=== PATIENT | female | born 1995 | race American Indian/Alaskan Native ===

== ENCOUNTER 2021-02-28 02:08 | Emergency (ER) | payer OTHER, BC ==
[2021-02-28] MEDS ORDERED: Fentanyl 100 MCG/2 ML VIAL ONE (03:06)
[2021-02-28] MEDS ORDERED: Boostrix 0.5 ML (Tdap) VIAL ONE (03:06)
[2021-02-28 04:44] LABS: BHCG - Serum Negative (NEGATIVE); Pregs Control Background? CLEAR/WHITE (CLR/WHITE); Pregs Control Bar Appear? YES (CONTROL BAR)
[2021-02-28] MEDS ORDERED: Acetaminophen 500 MG TAB ONE (05:37)
== END 2021-02-28 06:10 | disposition home or self-care (01) ==
LOC: ERS 02:08
DX: S02.92XA Unspecified fracture of facial bones, initial encounter for closed fracture (principal); V89.0XXA Person injured in unspecified motor-vehicle accident, nontraffic, initial encounter
CPT/HCPCS: 36415; 70450; 70486; 71045; 72125; 72170; 84703; 90471; 90715; 96374; J3010